=== PATIENT | male | born 1965 | race Caucasian/White ===

== ENCOUNTER 2019-05-09 09:49 | Emergency (ER) | payer SELFPAY ==
[~2019-05-09] VITALS: Ht 177.8 cm; Wt 133.0 kg
[2019-05-09] MEDS ORDERED: KETOROLAC 30MG/ML VIAL IM ONE (10:45)
[2019-05-09] MEDS ORDERED: CYCLOBENZAPRINE 10MG TABLET PO ONE (10:45)
[2019-05-09 10:59] VITALS: BP 147/83
== END 2019-05-09 11:33 | disposition home or self-care (01) ==
LOC: ER 10:20
DX: M54.5 Low back pain (principal); Z98.890 Other specified postprocedural states
CPT/HCPCS: 96372; 99283; J1885